=== PATIENT | female | born 1950 | race African-American/Black ===

== ENCOUNTER 2017-05-21 10:10 | Emergency (ER) | payer MEDICARE, MEDICAID ==
[~2017-05-21] VITALS: Ht 167.6 cm; Wt 84.0 kg
[~2017-05-21 10:10] MED LIST: CLON0.2T PO; DIPH1TAB76 PO; DIPH50TA19 PO; FLUO-123 PO; HYDR-523 PO; NIFE90TA43 PO; RANI150T7 PO
[2017-05-21] MEDS ORDERED: KETOROLAC 60MG/2ML VIAL IM ONE (11:30)
[2017-05-21 11:50] VITALS: BP 142/75
== END 2017-05-21 11:53 | disposition home or self-care (01) ==
LOC: ER 11:03
DX: M17.0 Bilateral primary osteoarthritis of knee (principal); G89.29 Other chronic pain; I10 Essential (primary) hypertension; Z88.6 Allergy status to analgesic agent
CPT/HCPCS: 96372; 99283; J1885